=== PATIENT | male | born 1960 | race Caucasian/White ===

== ENCOUNTER → 2021-05-05 | Outpatient (CLI) | payer OTHER | LOC: HYPER 07:34 | PROVIDERS: ATTEND Emergency Medicine | DX: S81.812A Laceration without foreign body, left lower leg, initial encounter (principal); L03.116 Cellulitis of left lower limb; I89.0 Lymphedema, not elsewhere classified; R60.9 Edema, unspecified; L30.9 Dermatitis, unspecified; E66.9 Obesity, unspecified; Z68.29 Body mass index [BMI] 29.0-29.9, adult; Z79.899 Other long term (current) drug therapy; Z89.611 Acquired absence of right leg above knee; Z96.642 Presence of left artificial hip joint; W22.03XA Walked into furniture, initial encounter; Y93.89 Activity, other specified; Y92.89 Other specified places as the place of occurrence of the external cause; Y99.8 Other external cause status ==

== ENCOUNTER → 2021-05-12 | Outpatient (CLI) | payer OTHER | LOC: HYPER 07:53 | PROVIDERS: ATTEND Emergency Medicine | DX: S81.812D Laceration without foreign body, left lower leg, subsequent encounter (principal); L03.116 Cellulitis of left lower limb; L84 Corns and callosities; I89.0 Lymphedema, not elsewhere classified; R60.0 Localized edema; L30.9 Dermatitis, unspecified; E66.9 Obesity, unspecified; Z68.29 Body mass index [BMI] 29.0-29.9, adult; Z89.611 Acquired absence of right leg above knee; Z96.642 Presence of left artificial hip joint; W22.03XD Walked into furniture, subsequent encounter ==

== ENCOUNTER → 2021-05-19 | Outpatient (CLI) | payer OTHER | LOC: HYPER 07:49 | PROVIDERS: ATTEND Emergency Medicine | DX: S81.812D Laceration without foreign body, left lower leg, subsequent encounter (principal); L97.822 Non-pressure chronic ulcer of other part of left lower leg with fat layer exposed; L03.116 Cellulitis of left lower limb; L84 Corns and callosities; I89.0 Lymphedema, not elsewhere classified; R60.0 Localized edema; L30.9 Dermatitis, unspecified; E66.9 Obesity, unspecified; Z68.29 Body mass index [BMI] 29.0-29.9, adult; W22.03XD Walked into furniture, subsequent encounter ==

== ENCOUNTER → 2021-06-02 | Outpatient (CLI) | payer OTHER | LOC: HYPER 07:44 | PROVIDERS: ATTEND Emergency Medicine | DX: S81.812D Laceration without foreign body, left lower leg, subsequent encounter (principal); L97.822 Non-pressure chronic ulcer of other part of left lower leg with fat layer exposed; L03.116 Cellulitis of left lower limb; I89.0 Lymphedema, not elsewhere classified; R60.0 Localized edema; L30.9 Dermatitis, unspecified; E66.9 Obesity, unspecified; Z68.29 Body mass index [BMI] 29.0-29.9, adult; F12.10 Cannabis abuse, uncomplicated; Z79.899 Other long term (current) drug therapy; Z89.611 Acquired absence of right leg above knee; W22.8XXD Striking against or struck by other objects, subsequent encounter ==